=== PATIENT | female | born 1940 | race Caucasian/White ===

== ENCOUNTER 2017-02-02 07:01 | Day surgery (SDC) | payer MEDICARE, MEDICAID ==
[~2017-02-02] VITALS: Ht 157.5 cm; Wt 75.0 kg
[~2017-02-02 07:01] MED LIST: SODIUM CHLORIDE 0.9% 1,000 ML IV ONE
[2017-02-02] MEDS ORDERED: SODIUM CHLORIDE 0.9% 1,000 ML IV ONE (07:17)
[2017-02-02] MEDS ORDERED: FentaNYL CITRATE-PF 100 MCG/2 ML VIAL ONE (07:30)
[2017-02-02] MEDS ORDERED: MIDAZOLAM HCL 2 MG/2 ML VIAL ONE (07:30)
[2017-02-02 07:43] LABS: GLUCOSE,POINT OF CARE 189 MG/DL (70-110)
[2017-02-02] MEDS ORDERED: MethylPREDNISolone SOD SUCC 125 MG/2 ML VIAL IVP ONE (08:15)
[2017-02-02] MEDS ORDERED: LIDOCAINE HCL 2% 30 ML JELLY TP ONE (17:27)
[2017-02-02] MEDS ORDERED: ALBUTEROL SULFATE 2.5 MG/0.5 ML NEB SOLUTION NEB ONE (17:27)
[2017-02-02] MEDS ORDERED: LIDOCAINE HCL 4% 50 ML SOLUTION TP ONE (17:27)
[2017-02-02] MEDS ORDERED: BENZOCAINE 20% 50 MCG/SPRAY 57 GM TP ONE (17:27)
[2017-02-02] MEDS ORDERED: OXYGEN THERAPY IH SCH (20:00)
== END 2017-02-02 09:50 | disposition home or self-care (01) ==
LOC: SURGERY 07:01
PROVIDERS: ATTEND Internal Medicine Critical Care Medicine
DX: J38.4 Edema of larynx (principal); B37.0 Candidal stomatitis; E11.9 Type 2 diabetes mellitus without complications; D71 Functional disorders of polymorphonuclear neutrophils; Z88.0 Allergy status to penicillin; Z79.82 Long term (current) use of aspirin; Z79.4 Long term (current) use of insulin; Z98.42 Cataract extraction status, left eye; Z98.41 Cataract extraction status, right eye; Z98.890 Other specified postprocedural states
CPT/HCPCS: 31623; 31624; 82962; 87015; 87070; 87101; 87205; 87220; 88108; 88184; 88185; 88312; J2250; J2930; J3010; J7030